=== PATIENT | male | born 1965 | race Caucasian/White ===

== ENCOUNTER → 2018-01-26 | Outpatient (CLI) | payer OTHER ==
[~2018-01-26] MED LIST: IOPAMIDOL (ISOVUE-300) 100 ML BTL ONE
== END ==
LOC: FIMAGING 09:01
PROVIDERS: ATTEND Physician Assistant Medical
DX: D41.02 Neoplasm of uncertain behavior of left kidney (principal); R91.1 Solitary pulmonary nodule
CPT/HCPCS: Q9967

== ENCOUNTER 2018-02-03 10:30 | Inpatient (IN) | payer OTHER ==
--- NOTE | 2018-02-03 10:08 | PDHPUP ---
History & Physical Update H&P update statement: This history and physical update is based on an assessment of the patient which was completed after admission or registration (within 24 hours), but prior to the surgery/procedure. H&P update: H&P reviewed & patient examined, no change in patient's condition since H&P completed
--- NOTE | 2018-02-03 10:20 | GHP ---
[f rep st] PREOP HISTORY AND PHYSICAL DATE OF ADMISSION: 02/03/2018 ADMISSION DIAGNOSIS: Mass on the left kidney. HISTORY OF PRESENT ILLNESS: This is a 53-year-old gentleman, who presented, referral from Dr. Arcos, because of a left renal mass. He also had some complaints of right flank pain, which initiated some of his evaluation. He has had no history of genitourinary cancers. He has had no significant hematuria. A CAT scan and the abnormal MRI revealed a 3.6 cm exophytic left renal mass. Abdominal MRI scan showed the mass was concerning for renal cell carcinoma. No obvious lymphadenopathy noted. Chest x-ray showed some minor small lesions, but nothing suggestive of metastatic disease. He has had a recent CBC and basic metabolic panel being normal. He had mild hypogonadism, with a testosterone of 318. At the present time, he is admitted for left robotic assisted partial nephrectomy. Indications, complications and options were discussed. Complications of bleeding, infection, urine leak, need to remove the malignancy, bowel injury, spleen injury, and then postoperative issues. Written and verbal consent have been obtained. PAST MEDICAL HISTORY: Positive for asthma, hypertension. PAST SURGICAL HISTORY: Appendectomy and vasectomy. MEDICATIONS: Include Advair, ibuprofen, ProAir HFA, and valsartan 160 mg. ALLERGIES: Penicillin. FAMILY HISTORY: Positive for bladder cancer. SOCIAL HISTORY: Nondrinker. Current smoker. REVIEW OF SYSTEMS: Negative cardiac, respiratory, GI, endocrine. PHYSICAL EXAMINATION: VITAL SIGNS: Stable. CHEST: Clear. HEART: Regular rate and rhythm. ABDOMEN: Normal. No organomegaly, rebound or guarding. LOWER EXTREMITIES: Normal. At the present time, he is admitted for the robotic assisted left partial nephrectomy. After review of all films and discussion of case with colleagues, will perform radical left nephrectomy due to hilar involvement and concerns about positive margin, urine leak and bleeding. Pt seems to understand review of films and questions answered, options discussed, risks outlined. Total left nephrectomy planned. /[id number]/MODL MTDD
[~2018-02-03 10:30] MED LIST changes: +CLINDAMYCIN 900 MG/DEXTROSE 50 ML IV ONE; -IOPAMIDOL (ISOVUE-300) 100 ML BTL ONE
[2018-02-03] MEDS ORDERED: LR 1,000 ML IV ONE (11:27)
[2018-02-03] MEDS ORDERED: PROPOFOL/EMULSION 500 MG/50 ML BOTTLE IV ONE ×2 (12:01→14:56)
[2018-02-03] MEDS ORDERED: fentaNYL 250 MCG/5 ML INJ ONE (12:17)
[2018-02-03] MEDS ORDERED: MIDAZOLAM 2 MG/2 ML VIAL ONE (12:56)
[2018-02-03] MEDS ORDERED: MIDAZOLAM 2 MG/2 ML VIAL IVP ONE (12:57)
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
[2018-02-03] MEDS ORDERED: THROMBIN (BOVINE) 5,000 UNIT VIAL TP ONE (13:09)
[2018-02-03] MEDS ORDERED: MANNITOL 20% 100 GM/500 ML BAG IV ONE (13:10)
[2018-02-03] MEDS ORDERED: THROMBIN(HUM PLAS)/FIBRINOG/CA 5 ML VIAL TP ONE (13:16)
[2018-02-03] MEDS ORDERED: BUPIVACAINE 0.5% 30 ML SDV ONE (13:16)
[2018-02-03] MEDS ORDERED: MEPERIDINE 25 MG/ML SYR IVP PRN (16:03)
[2018-02-03] MEDS ORDERED: HYDROCODONE/APAP 5/325 TAB PO PRN (16:03)
[2018-02-03] MEDS ORDERED: METOCLOPRAMIDE 10 MG/2 ML VIAL IVP PRN (16:03)
[2018-02-03] MEDS ORDERED: PROMETHAZINE HCL 25 MG/ML INJ IVP PRN (16:03)
[2018-02-03] MEDS ORDERED: ALBUTEROL 3 ML DEYVIAL IH PRN (16:03)
[2018-02-03] MEDS ORDERED: ONDANSETRON 4 MG/2 ML VIAL IVP PRN (16:03)
[2018-02-03] MEDS ORDERED: oxyCODONE IR 5 MG TAB PO PRN (16:03)
[2018-02-03] MEDS ORDERED: NALOXONE HCL 0.4 MG/ML INJ IVP PRN ×2 (16:03→17:35)
[2018-02-03] MEDS ORDERED: LR 500 ML IV PRN (16:03)
--- NOTE | 2018-02-03 16:12 | POSTOPPROG ---
Post Op Note Date of Operation: 02/03/18 Surgeon: Lorne Jenkins Orthopedic Radiologic Technologist: Shamika Anesthesiologist: Dayana Anesthesia: GET(General Endotracheal) Pre-op Diagnosis: left renal mass Procedure: RA-left radical nephrectomy / partial ureterectomy Inf/Abcess present in the surg proc area at time of surgery?: No EBL: 100-500 (150 ml per anesthesia) Specimen(s): left kidney, part of adrenal and ureter--dictated
[2018-02-03] MEDS ORDERED: fentaNYL 100 MCG/2 ML INJ ONE ×2 (16:29→16:46)
[2018-02-03] MEDS: fentaNYL 100 MCG/2 ML INJ IVP PRN ×4 (16:30→17:03)
[2018-02-03] MEDS ORDERED: LABETALOL HCL 5 MG/ML 20 ML MDV ONE (16:39)
[2018-02-03] MEDS: LABETALOL HCL 5 MG/ML 20 ML MDV IVP PRN ×6 (16:40→18:01)
[2018-02-03] MEDS ORDERED: OXYCODONE/APAP 5/325 TAB PO PRN (17:35)
--- NOTE | 2018-02-03 17:38 | POSTANESTH ---
Post Anesthetic Evaluation Cardiovascular Status: Normal, Stable Respiratory Status: Normal, Stable Level of Consciousness/Mental Status: Can Participate in Eval Pain Control: Adequate, Prn Tx Ordered Nausea/Vomiting Control: Adequate, Prn Tx Ordered Complications Possibly Related to Anesthesia: None Noted (Hypertension being treated in PACU.)
--- NOTE | 2018-02-03 17:42 | GOP ---
[f rep st] OPERATIVE REPORT DATE OF OPERATION: 02/03/2018 SURGEON: Lorne Jenkins MD MOBILE GAME ENGINEER: Analilia Wick. ANESTHESIOLOGIST: Dr. Anne. PREOPERATIVE DIAGNOSIS: Left renal mass. POSTOPERATIVE DIAGNOSIS: Left renal mass. PROCEDURE PERFORMED: Robotic-assisted left radical nephrectomy with partial ureterectomy. FINDINGS: mass confined to kidney ESTIMATED BLOOD LOSS: 150 mL per anesthesia. INDICATIONS: Preoperatively, I reviewed his CAT scan thoroughly with him and the reason we had anticipated doing a partial nephrectomy, but because of the hilar nature of the lesion and concern that he would have positive margins or at a high risk for developing a urinary fistula or bleeding, I had outlined the options, but I would recommend he undergo a radical nephrectomy for the treatment. Complications associated with a single kidney, as well as postoperative complications of bleeding, infection, and intraoperative risks were discussed in detail. He appeared to understand. Written and verbal consents were obtained. I tried to answer his questions to the best of my ability. His was not available at the time of this discussion, and it was before he received any preoperative medication. DESCRIPTION OF PROCEDURE: After undergoing general anesthesia and being prepped and draped in normal sterile fashion, and the marked side of the of the left kidney was up, and appropriately prepped and draped, a Veress needle was placed intra-abdominally. Intraabdominal pressure went up to 15 mmHg of pressure of CO2. At that point, I placed two 8 mm ports, a 12 mm camera port, and an loan assistant port in what was originally felt to be appropriate positioning. After docking the robot and manipulating the instruments, I had to place a 3rd robot arm port in position so there was not clashing of the left arm and the camera. At that point, mobilized the colon and mobilized the splenic flexure of the colon. Throughout the procedure, because of his abdominal size and abundance of fatty tissue, visualization was limited. I did mobilize the colon so it would fall over medial as far as possible. Then I identified the ureter and gonadal vein and dissected up to the renal hilum. Then the renal hilum identified the artery and the renal vein. I then used a 60 mm stapler to staple the vessels and then mobilized the top of the kidney and hemostasis by the stapler. At that point, stapled the ureter and gonadal vessels below the kidney and took all of the perinephric fat and part of the adrenal gland on this dissection. Since the tumor was lateral, I felt a total adrenalectomy was not necessary. I then placed the specimen in the bag after it was totally mobilized and void of connection to any anatomic structures. I then decreased the intraabdominal pressure to 5 mmHg. There was no pooling of blood, no suggestion of bleeding. At that point, I elected to undock the robot. I closed the camera port with a fascial closure device and then connected the loan assistant port site to the most inferior 8 mm port site and made an incision, connected those and was able to remove the specimen through that. I did go through the anterior rectus sheath. Rectus muscle, posterior rectus, and fascia layers were identified at the most superior part of it. Then on the closure, I closed in 2 layers of the fascial sheath. Hemostasis of the rectus muscle provided with Hem-O-Carmela and electrocautery. Subcutaneous tissue was hemostatic. Skin was closed with an intradermal 4-0 Monocryl. The specimen was sent to Pathology. SURGEON: Lorne Jenkins. COMPLICATIONS: None. He will be admitted for postoperative care. I will discuss with the family the findings. cc: Analilia Wick /[id number]/MODL MTDD
[2018-02-03] MEDS ORDERED: hydrALAZINE 20 MG/ML VIAL ONE (18:15)
[2018-02-03] MEDS ORDERED: hydrALAZINE 20 MG/ML VIAL IVP ONE ×2 (18:45→19:15)
[2018-02-03] MEDS: HYDROmorphONE/DILAUDID 6 MG/30 ML PCA IV PRN (19:49)
[2018-02-03] MEDS: D5W 1/2 NS W/ 20 KCl/L 1,000 ML IV SCH (19:49)
[2018-02-04] MEDS: ONDANSETRON 4 MG/2 ML VIAL IVP PRN ×4 (02:25→20:23)
[2018-02-04 05:14] LABS: PLATELET COUNT 230 10^3/uL (150-400)
--- NOTE | 2018-02-04 08:14 | SOAPPROG ---
GABRIELLA Progress Note Assessment/Plan: Assessment: Renal mass, left Acute POD 1, path pending Plan: Continue post op care 02/04/18 08:13 Subjective: normal post op pain Objective: Vital Signs Temp Pulse Resp BP Pulse Ox 36.1 C 82 20 118/87 H 94 02/04/18 04:57 02/04/18 04:57 02/04/18 04:57 02/04/18 04:57 02/04/18 04:57 Laboratory Results 02/04/18 04:44 02/04/18 04:44 02/03/18 02/04/18 02/05/18 05:59 05:59 05:59 Intake Total 2540 Output Total 1500 Balance 1040 Physical Exam - Physical Exam General Appearance: alert Neck: full range of motion Respiratory: No respiratory distress Cardiac/Chest: regular rate, rhythm Abdomen: soft Back: No CVA tenderness Neuro/Psych: alert, oriented x 3 ICD10 Worksheet Patient Problems: Problems Problem Status Onset Renal mass, left Acute
--- NOTE | 2018-02-04 09:47 | ASMTCMCOM ---
CM Note CM Note Notes: Patient admitted for L radical nephrectomy and partial ureterectomy. He is doing well POD #1. Patient lives with and is employed. He is normally independent, and I do not anticipate any discharge needs. Case Management available if this changes. Date Signed: 02/04/2018 09:46 AM Electronically Signed By:Natasha Spear RN
--- NOTE | 2018-02-04 11:10 | PDMN ---
Medical Necessity Medical necessity: S872- Nephrectomy by Lap 1-2 days: RA-L radical nephrectomy/ partial ureterectomy
[2018-02-04] MEDS: D5W 1/2 NS W/ 20 KCl/L 1,000 ML IV SCH (12:23)
[2018-02-04] MEDS: HYDROmorphONE/DILAUDID 6 MG/30 ML PCA IV PRN (16:27)
[2018-02-05] MEDS: ONDANSETRON 4 MG/2 ML VIAL IVP PRN ×5 (00:40→21:54)
[2018-02-05] MEDS: HYDROmorphONE/DILAUDID 6 MG/30 ML PCA IV PRN (10:33)
--- NOTE | 2018-02-05 10:39 | SOAPPROG ---
SOAP Progress Note Assessment/Plan: Assessment: Renal mass, left Acute POD 2, path pending, doing well yet pain seems related to ileus and bowel gas Plan: Continue post op care 02/05/18 12:17 Subjective: doing well yet pain and gas an issue, ambulation good and spirocare to >2000 Objective: Vital Signs Temp Pulse Resp BP Pulse Ox 36.7 C 81 17 131/77 H 90 L 02/05/18 10:00 02/05/18 10:00 02/05/18 10:00 02/05/18 10:00 02/05/18 10:00 Laboratory Results 02/04/18 04:44 02/04/18 04:44 02/04/18 02/05/18 02/06/18 05:59 05:59 05:59 Intake Total 2540 2220 Output Total 1500 3325 Balance 1040 -1105 Physical Exam - Physical Exam General Appearance: alert Neck: full range of motion Respiratory: No respiratory distress Cardiac/Chest: regular rate, rhythm Back: CVA tenderness (mild left flank tenderness) Extremities: No calf tenderness Neuro/Psych: alert, oriented x 3 ICD10 Worksheet Patient Problems: Problems Problem Status Onset Renal mass, left Acute
[2018-02-05] MEDS: METOCLOPRAMIDE 10 MG TAB PO SCH ×2 (15:52→21:54)
[2018-02-05] MEDS: SIMETHICONE 80 MG TAB CHEW PO PRN (15:52)
[2018-02-06] MEDS: METOCLOPRAMIDE 10 MG TAB PO SCH (04:12)
--- NOTE | 2018-02-06 08:05 | SOAPPROG ---
SOAP Progress Note Assessment/Plan: Assessment: Renal mass, left Acute POD 3, path pending, doing well yet pain seems related to ileus and bowel gas, renal cell cancer T1b to hilum and no fat invasion Plan: Continue post op care 02/06/18 16:04 Subjective: doing better, + flatus Objective: Vital Signs Temp Pulse Resp BP Pulse Ox 36.6 C 82 18 148/97 H 91 L 02/06/18 05:52 02/06/18 05:52 02/06/18 05:52 02/06/18 05:52 02/06/18 05:52 Laboratory Results 02/04/18 04:44 02/04/18 04:44 02/05/18 02/06/18 02/07/18 05:59 05:59 05:59 Intake Total 2220 1276 Output Total 3325 1150 Balance -1105 126 Physical Exam - Physical Exam General Appearance: alert Neck: supple Respiratory: No respiratory distress Cardiac/Chest: regular rate, rhythm Abdomen: non-tender, soft Male Genitalia: normal genitalia Back: No CVA tenderness Skin: warm/dry Neuro/Psych: alert, oriented x 3 ICD10 Worksheet Patient Problems: Problems Problem Status Onset Renal mass, left Acute
[2018-02-06] MEDS: SIMETHICONE 80 MG TAB CHEW PO PRN ×3 (08:12→20:34)
[2018-02-06] MEDS: ONDANSETRON 4 MG/2 ML VIAL IVP PRN ×3 (08:12→22:07)
--- NOTE | 2018-02-06 17:27 | ASMTCMCOM ---
CM Note CM Note Notes: Reviewed chart, spoke with JACINDA Vidal regarding discharge plan of care, pt's progress. Per notes, pt is POD #3 s/p nephrectomy for renal cell cancer. Per Marcy, pt remains on IV pain medication with a SOCIOLOGY PROFESSOR and oxygen today. Pt's , Brooke at bedside. Pt requesting a shower. No PT/OT evals. Anticipate pt will likely discharge home independently with family support when medically stable. CM will continue to follow for any potential needs. Current Discharge Plan: Home independently Date Signed: 02/06/2018 05:26 PM Electronically Signed By:Komal Kaur RN
[2018-02-06] MEDS: HYDROmorphONE/DILAUDID 6 MG/30 ML PCA IV PRN (17:33)
[2018-02-07 08:34] VITALS: BP 138/107
--- NOTE | 2018-02-07 10:03 | SOAPPROG ---
SOAP Progress Note Assessment/Plan: Assessment: Renal mass, left Acute POD 4, path discussed T1b clear cell-- renal cell cancer, doing well , renal cell cancer T1b to hilum and no fat invasion Plan: Continue post op care 02/07/18 10:01 Subjective: ready for home Objective: Vital Signs Temp Pulse Resp BP Pulse Ox 36.6 C 69 15 138/107 H 95 02/07/18 08:32 02/07/18 08:32 02/07/18 08:32 02/07/18 08:32 02/07/18 08:32 Laboratory Results 02/04/18 04:44 02/04/18 04:44 02/06/18 02/07/18 02/08/18 05:59 05:59 05:59 Intake Total 1276 492 Output Total 1150 1970 Balance 126 -1478 Physical Exam - Physical Exam General Appearance: alert Respiratory: No respiratory distress Cardiac/Chest: regular rate, rhythm Abdomen: soft Back: No CVA tenderness Skin: warm/dry Neuro/Psych: alert, oriented x 3 ICD10 Worksheet Patient Problems: Problems Problem Status Onset Renal mass, left Acute
[2018-02-07] MEDS ORDERED: ONDANSETRON DISINTEGRATING 4 MG TAB PO PRN (10:04)
== END 2018-02-07 11:58 | disposition home or self-care (01) | DRG 657 ==
LOC: F3E 11:06 → F1N 15:20
PROVIDERS: ADMIT Specialist; ATTEND Specialist
PROC: 0TT14ZZ Resection of Left Kidney, Percutaneous Endoscopic Approach (ICD-10-PCS; principal; 2018-02-03 12:30)
PROC: 8E0WXCZ Robotic Assisted Procedure of Trunk Region (ICD-10-PCS; principal; 2018-02-03 12:30)
DX: C64.2 Malignant neoplasm of left kidney, except renal pelvis (principal); J45.909 Unspecified asthma, uncomplicated; I10 Essential (primary) hypertension; K56.7 Ileus, unspecified; F17.210 Nicotine dependence, cigarettes, uncomplicated
CPT/HCPCS: J0360; J1170; J2250; J2270; J2405; J2704; J3010

== ENCOUNTER → 2018-08-12 | Outpatient (CLI) | payer OTHER ==
[~2018-08-12] MED LIST changes: -CLINDAMYCIN 900 MG/DEXTROSE 50 ML IV ONE; +IOPAMIDOL (ISOVUE-300) 100 ML BTL ONE
== END ==
LOC: FIMAGING 09:10
PROVIDERS: ATTEND Specialist
DX: M62.58 Muscle wasting and atrophy, not elsewhere classified, other site (principal); R93.421 Abnormal radiologic findings on diagnostic imaging of right kidney; M43.06 Spondylolysis, lumbar region; Z90.5 Acquired absence of kidney
CPT/HCPCS: 82565-PO; Q9967

== ENCOUNTER → 2019-03-25 | Outpatient (CLI) | payer OTHER | LOC: FIMAGING 14:30 ==